=== PATIENT | female | born 1985 ===

== ENCOUNTER 2018-02-18 07:12 | Outpatient (CLI) | payer OTHER | END 2018-02-18 07:16 | disposition home or self-care (01) | LOC: SONOGRAMA 07:12 | DX: K82.8 Other specified diseases of gallbladder (principal) ==

== ENCOUNTER 2019-02-25 07:37 | Outpatient (CLI) | payer OTHER | END 2019-02-25 07:44 | disposition home or self-care (01) | LOC: TOM 07:37 | DX: G47.33 Obstructive sleep apnea (adult) (pediatric) (principal) ==